=== PATIENT | female | born 1975 | race Caucasian/White ===

== ENCOUNTER → 2016-12-30 | Outpatient (CLI) | payer BC | LOC: FIMAGING 09:41 | PROVIDERS: ATTEND Advanced Practice Midwife | DX: O09.521 Supervision of elderly multigravida, first trimester (principal); Z3A.12 12 weeks gestation of pregnancy ==

== ENCOUNTER 2017-07-12 06:00 | Inpatient (IN) | payer BC ==
[2017-07-12] MEDS ORDERED: EPSOM SALT 454 GM TP PRN (06:43)
[2017-07-12] MEDS ORDERED: OLIVE OIL 118 ML BTL MISC PRN (06:43)
[2017-07-12] MEDS ORDERED: OXYTOCIN/RINGERS LACTATE 1,000 ML IV PRN (06:43)
[2017-07-12] MEDS ORDERED: TERBUTALINE SULFATE 1 MG/ML VIAL IV PRN (06:43)
[2017-07-12] MEDS ORDERED: LIDOCAINE 1% 300 MG/30 ML SDV SC PRN (06:43)
[2017-07-12] MEDS ORDERED: IBUPROFEN 600 MG TAB PO PRN (06:43)
[2017-07-12] MEDS ORDERED: LR 1,000 ML IV PRN (06:43)
[2017-07-12] MEDS ORDERED: MISOPROSTOL 200 MCG TAB PR PRN (06:43)
[2017-07-12 06:57] LABS: PLATELET COUNT 159 10^3/uL (150-400)
[2017-07-12] MEDS ORDERED: OXYTOCIN/RINGERS LACTATE 500 ML IV SCH (08:30)
--- NOTE | 2017-07-12 09:13 | PDGENHP ---
History and Physical History and Physical: [facility] HPI: Patient is a 41 yo G 6 P 2 at 40 weeks ega who presents to L&D for IOL. She states baby has been active, denies regular painful contractions, vaginal bleeding or leaking fluid. She has had her care at [facility] starting at 8 weeks ega. EDC: 07/12/2017 which is based on LMP: 10/05/16 which is known and consistent with Ultrasound at 7 weeks. Her is complicated by: -AMA -Rh neg Review of Systems: Constitutional: Denies any fever, chills, or fatigue HEENT: denies any visual changes, difficulty swallowing, hearing loss Cardiovascular: Denies any chest pain, palpitations, leg swelling Respiratory: denies any cough, wheezing, or shortness of breathe GI: Denies any nausea, vomiting, diarrhea, constipation : denies any dysuria, urgency, frequency, vaginal bleeding Musculoskeletal: denies any muscle or bone pain Skin: denies any rashes Neuro: denies any headache, seizures, lightheadedness, dizziness, or loss of consciousness Psychiatric: denies any depression, anxiety, or SI/HI thoughts HISTORY: Previous OB history: MAB with D&C 2010; 2011 -viable female, forcep delivery; 2013-viable female, precipitous labor (2 hours); SAB 02/2016; "chemical " 07/14 Past medical history: HSV type 1-cold sores Past surgical history: D&C 2010 Medications: PNV, ferrous sulfate Allergies (list reaction): NKDA LABS: Rh: O neg ABS: Neg Rubella: Immune HbsAg: NR HIV: NR VDRL: NR 1hr: 109 GC: Neg Chlamydia: Neg Pap: Normal 2015 GBS: neg Genetics: Innatal, MSAFP, standard panel WNL BMI: (prepreg) 27 PHYSICAL EXAM: Constitutional: WN, A&Ox3 HEENT: normocephalic atraumatic, supple Heart: RRR, no murmur Chest: CTA-B Abdomen: Soft, nontender, gravid SVE: /-1 Extremities: small edema, negative robert's sign Neuro: grossly normal Psych: normal affect assessment: Reassuring FHTs, baseline 120s +accels, no decels, moderate variability Contractions: toco q 3-5, mild Assessment: 1) 41 yo G 6 P 2 with IUP@ 40 weeks ega admitted for IOL 2) AMA 3) GBS neg 4) Cat 1 FHR tracing 5) EFW 3800 gms 6) Rh neg Plan: 1) Admit to L&D 2) Pitocin induction per protocol 3) AROM 4) Epidural when patient desires 5) Anticipate
[2017-07-12] MEDS ORDERED: fentaNYL 200 MCG, BUPIVACAINE 0.5% 20 ML in NS 100 ML EP SCH ×2 (10:00→11:00)
[2017-07-12] MEDS ORDERED: PHENYLEPHRINE HCL 100 MCG/ML SYR ONE (10:02)
[2017-07-12] MEDS ORDERED: fentaNYL 100 MCG/2 ML INJ ONE (10:02)
--- NOTE | 2017-07-12 10:36 | PREANESOB ---
Obstetric Pre-Anesthesia Info - General Info Proposed Procedure: ind/aug labor : 6 Para: 2 MATT: 07/12/17 Gestational Age: 40 week(s) and 0 day(s) - Info Status: Full Term Monitors: External FHR Pattern: Reassuring - Labor Status Pitocin: In Use Magnesium Sulfate in Use: No Indications for Labor Analgesia: Augmentation of Labor, Pain Control Labor Epidural: Yes Anesthesia Allergies/Adverse Reactions: Allergy/AdvReac Type Severity Reaction Status Date / Time No Known Allergies Allergy Unverified 07/12/17 06:40 Home Medications: Medication Instructions Recorded Iron 1 tab PO DAILY 07/12/17 1 tab PO DAILY 07/12/17 Visit Medications: Generic Name Dose Route Start Last Admin Trade Name Freq PRN Reason Stop Dose Admin Lactated Ringer's 1,000 mls @ 0 mls/hr 07/12/17 06:43 Lr IV 07/13/17 06:42 PRN PRN SEE PROTOCOL CONDITIONS Protocol Per Protocol Oxytocin/Lactated Ringer's 1,000 mls @ 125 mls/hr 07/12/17 06:43 Pitocin 20 Units/Lr (Premix) IV PRN PRN Post bleeding Oxytocin/Lactated Ringer's 500 mls @ 0 mls/hr 07/12/17 08:30 Pitocin 30 Units/Lr (Premix) IV 01/08/18 08:29 CONT JOSE Per Protocol Fentanyl 200 mcg/ Bupivacaine 100 mls @ 0 mls/hr 07/12/17 10:00 HCl 20 ml/ Sodium Chloride EP 07/22/17 09:59 CONT [facility] Protocol As Directed Ibuprofen 600 mg 07/12/17 06:43 Motrin PO ONCE PRN post , pain Lidocaine HCl 300 mg 07/12/17 06:43 Lidocaine Hcl 1% SC 01/08/18 06:42 ONCE PRN episiotomy Magnesium Sulfate 454 gm 07/12/17 06:43 Epsom Salt TP 01/08/18 06:42 Q1H PRN perineal discomfort Misoprostol 800 - 1,000 mcg 07/12/17 06:43 Cytotec [place] ONCE PRN Vaginal Atony/Bleeding [place] Oil 118 ml 07/12/17 06:43 Sweet Oil MISC 01/08/18 06:42 ONCE PRN perineal massage Terbutaline Sulfate 0.25 mg 07/12/17 06:43 Brethine IV 01/08/18 06:42 ONCE PRN Tachysystole Discontinued Medications Generic Name Dose Route Start Last Admin Trade Name Freq PRN Reason Stop Dose Admin Fentanyl Confirm 07/12/17 10:02 Sublimaze Administered 07/12/17 10:03 Dose 100 mcg .ROUTE .STK-MED ONE Phenylephrine HCl Confirm 07/12/17 10:02 Neosynephrine Administered 07/12/17 10:03 Dose 1,000 mcg .ROUTE .STK-MED ONE - Vital Signs Height/Weight (Nursing): Height 165.1 cm Weight 83.461 kg Labs: 07/12/17 06:35 Patient ABO/Rh O NEGATIVE 07/12/17 06:35
[2017-07-12] MEDS ORDERED: ONDANSETRON 4 MG/2 ML VIAL IVP PRN (10:37)
[2017-07-12] MEDS ORDERED: PHENYLEPHRINE HCL 100 MCG/ML SYR IVP PRN (10:37)
[2017-07-12] MEDS ORDERED: NALOXONE HCL 0.4 MG/ML INJ IVP PRN (10:37)
--- NOTE | 2017-07-12 10:37 | PDANEPAE ---
ANE History of Present Illness ind/aug labor ANE Past Medical History - Cardiovascular History Hx Hypertension: No Hx Arrhythmias: No Hx Chest Pain: No Hx Coronary Artery / Peripheral Vascular Disease: No Hx CHF / Valvular Disease: No Hx Palpitations: No - Pulmonary History Hx COPD: No Hx Asthma/Reactive Airway Disease: No Hx Sleep Apnea: No - Neurologic History Hx Cerebrovascular Accident: No Hx Seizures: No Hx Dementia: No - Endocrine History Hx Diabetes: No Hypothyroid: No Hyperthyroid: No - Renal History Hx Renal Disorders: No - Liver History Hx Hepatic Disorders: No ANE Review of Systems Review of Systems: - Exercise capacity Exercise capacity: >=4 METS ANE Patient History - Allergies Allergies/Adverse Reactions: No Known Allergies Allergy (Unverified 07/12/17 06:40) - Home Medications Home Medications: Iron 1 tab PO DAILY 07/12/17 [Last Taken Unknown] 1 tab PO DAILY 07/12/17 [Last Taken Unknown] - Anes Hx Anes Hx: no prior problems - Smoking Hx Smoking Status: Former smoker ANE Labs/Vital Signs - Labs Result Diagrams: 07/12/17 06:35 - Vital Signs Height: 165.1 cm Weight: 83.461 kg ANE Physical Exam - Airway Mallampati Score: Class 2 Mouth exam: normal dental/mouth exam - Pulmonary Pulmonary: no respiratory distress - Cardiovascular Cardiovascular: regular rate and rhythym - ASA Status ASA Status: II ANE Anesthesia Plan Anesthesia Plan: spinal, epidural
[2017-07-12] MEDS ORDERED: LIDOCAINE 1% 300 MG/30 ML SDV ONE (10:57)
[2017-07-12] MEDS ORDERED: OLIVE OIL 118 ML BTL ONE (10:57)
[2017-07-12] MEDS ORDERED: TERBUTALINE SULFATE 1 MG/ML VIAL ONE (10:58)
[2017-07-12] MEDS ORDERED: MISOPROSTOL 200 MCG TAB ONE (10:58)
[2017-07-12] MEDS ORDERED: AMMONIA AROMATIC 1 EACH AMP IH ONE (10:58)
[2017-07-12] MEDS ORDERED: OXYTOCIN 10 UNIT/ML VIAL ONE (10:58)
[2017-07-12] MEDS ORDERED: fentaNYL 2MCG/ML/BUP 0.1% RTU 100 ML EP SCH (11:00)
[2017-07-12] MEDS ORDERED: LR 500 ML IV SCH (11:00)
[2017-07-12] MEDS ORDERED: SIMETHICONE 80 MG TAB CHEW PO PRN (13:53)
[2017-07-12] MEDS ORDERED: HYDROCODONE/APAP 5/325 TAB PO PRN (13:53)
[2017-07-12] MEDS ORDERED: HYDROCORTISONE 0.5% CREAM TP PRN (13:53)
--- NOTE | 2017-07-12 14:01 | OBDEL ---
Info Type: Vaginal Presentation at Delivery: Vertex L&D Analgesia/Anesthesia Type: Epidural GBS+: No Vaginal Delivery - Delivery Provider Delivery Physician/CNM: Zoila Lipscomb - Labor and Delivery Onset of Contractions Date: 07/12/17 Onset of Contractions Time: 09:00 Onset of Contractions Type: Induced Rupture of Membranes Date: 07/12/17 Rupture of Membranes Time: 08:57 Rupture of Membranes Type: Artificial Amniotic Fluid Color: Clear Dilation Complete Date: 07/12/17 Dilation Complete Time: 13:24 Placenta Delivery Date: 07/12/17 Placenta Delivery Time: 13:38 Total Hours of Labor: 4 Non-surgical Procedures: Amniotomy Laceration: 1st Degree Repair: 3-0, Vicryl Vaginal Sponge Count Correct: Yes Vaginal Needle Count Correct: Yes Vaginal Sweep Performed: No EBL: 200 Delivery Events: None - Medications Labor Augmentation/Induction Methods Used: Pitocin (AMA at term) Labor Augmentation/Induction Indication: Other (Specify) (AMA at term) Data MATT: 07/12/17 Gestational Age: 40 week(s) and 0 day(s) Mora Sex of : Male Score (1 Min): 8 Score (5 Min): 8 ICD10 Worksheet Patient Problems: Problems Problem Status Onset AMA (advanced maternal age) multigravida 35+ Acute Vaginal delivery Acute - ICD10 Problem Qualifiers (1) AMA (advanced maternal age) multigravida 35+ (2) Vaginal delivery
[2017-07-12] MEDS: IBUPROFEN 600 MG TAB PO PRN (20:01)
[2017-07-13] MEDS: IBUPROFEN 600 MG TAB PO PRN ×4 (01:57→21:06)
[2017-07-13] MEDS: DOCUSATE SODIUM 100 MG CAP PO PRN (09:09)
--- NOTE | 2017-07-13 11:02 | OBPP ---
Progress Note Assessment/Plan: Assessment: PPD1 s/p . Doing great from maternal perspective - I'd be comfortable with her going home if baby discharged. Will get her info on pelvic PT. IV can come out. Continue pumping to help with breast milk production. Rh neg - Needs screen and RhoGam if indicated. JM Subjective/ Course: Solange is doing great this AM - going okay, but her milk really isn't coming in (came in day 3-4 with all her other kids) so she does have the pump in there in addition to other feedings. Would be interested in leaving later today if possible, but sounds like peds would like to keep the baby. Would like recs for pelvic PT, would like her IV out. Objective: 07/12/17 06:35 Patient ABO/Rh O NEGATIVE 07/12/17 06:35 Temp Pulse Resp BP Pulse Ox 36.6 C 80 16 117/77 94 07/13/17 09:00 07/13/17 09:00 07/13/17 09:00 07/13/17 09:00 07/13/17 09:00
[2017-07-14] MEDS: IBUPROFEN 600 MG TAB PO PRN ×2 (03:25→11:42)
[2017-07-14 08:09] VITALS: BP 119/74
--- NOTE | 2017-07-14 08:17 | OBGCSDC ---
General Delivery Information - General Info : 6 Para: 3 Abortions: 3 Type: Vaginal L&D Analgesia/Anesthesia Type: Epidural Admission Date: 07/12/17 Labs: Patient ABO/Rh O NEGATIVE 07/13/17 12:18 Hct 37.3 % (38.0-47.0) L 07/12/17 06:35 - Hospital Course : Solange is doing great this AM - going okay, but her milk really isn't coming in (came in day 3-4 with all her other kids) so she does have the pump in there in addition to other feedings. Would be interested in leaving later today if possible, but sounds like peds would like to keep the baby. Would like recs for pelvic PT, would like her IV out. 07/14/17 08:16 S) Pt doing well, reports min pain and bleeding. she is ambulating and voiding without difficulty. She is . She desires discharge home today. O) VSS, afebrile constitutional: WNWF, A&Ox3 HEENT: normocephalic, atraumatic, supple Heart: RRR, No murmur Chest: CTA-B Abdomen: Soft, nontender Uterus: Firm at U-2 Lochia: Minimal rubra Perineum: Intact, healing well Extremities: Trace edema, and negative Sheri's sign Neuro: Grossly normal A) [id number] S/P PPD#2 P) Discharge home today Continue Pelvic rest x6wks Discussed danger signs (infection, preeclampsia, depression, heavy bleeding, etc ) RTO in 2/4/6 weeks Vaginal - Delivery Provider Delivery Physician/CNM: Zoila Lipscomb - Diagnosis Labor: Induced Rupture of Membranes Type: Artificial Amniotic Fluid Color: Clear Laceration: 1st Degree Repair: 3-0, Vicryl Delivery Events: None - Procedures Non-surgical Procedures: Amniotomy - Delivery Non-surgical Procedures: Amniotomy EBL: 200 Data MATT: 07/12/17 Gestational Age: 40 week(s) and 2 day(s) Mora Delivery Date: 07/12/17 Delivery Time: 13:30 Sex of : Male Score (1 Min): 8 Score (5 Min): 8
[2017-07-14] MEDS: DOCUSATE SODIUM 100 MG CAP PO PRN (11:42)
== END 2017-07-14 17:00 | disposition home or self-care (01) | DRG 775 ==
LOC: FLD 06:15 → FOB 17:45
PROVIDERS: ADMIT Advanced Practice Midwife; ATTEND Advanced Practice Midwife
DX: O70.0 First degree perineal laceration during delivery (principal); Z37.0 Single live birth; Z3A.40 40 weeks gestation of pregnancy
CPT/HCPCS: J2370; J2590; J3010; J3105